=== PATIENT | female | born 1985 | race Caucasian/White ===

== ENCOUNTER 2017-10-04 14:30 | Inpatient (IN) | payer BC ==
[2017-10-04] MEDS ORDERED: Sodium Chloride 0.9% 10 ML Syringe FLUSH PRN (17:46)
[2017-10-04] MEDS ORDERED: Oxytocin/Lactated Ringers 10 UNIT/1,000 ML BAG IV SCH (18:00)
[2017-10-04] MEDS ORDERED: Lactated Ringers 1,000 ML IV SCH (18:00)
--- NOTE | 2017-10-04 20:32 | PCM.LDHP ---
L&D History of Present Illness - General Date of Service: 10/04/17 Admit Problem/Dx: Patient Status Order with Admit Dx/Problem 10/04/17 14:53 Patient Status [ADT] Routine Admission Diagnosis/Problem Admission Diagnosis/Problem and not yet delivered 10/04/17 20:26 31 yo at 39 6/7 presents to labor and delivery with contractions, irregular for several hours. No LOF. No VB. Normal FM. Observed on the floor for 4 hours. Slow cervical change noted and increased frequency of contractions noted. NST reactive. Given pts gestational age and distance of her home to the hospital, decision was made to augment labor with AROM. Routine and uncomplicated care. Previous pregnancies remarkable for gestational hypertension, gestational diabetes and shoulder dystocia with clavicle fracture. GBS neg STD ndg B positive Source of Information: Patient History Limitations: Reports: No Limitations - History of Present Illness Location, : Reports: Abdomen Quality: Reports: Pressure Severity: Mild Improves with: Reports: None Worsens with: Reports: None Associated Symptoms: Denies: vaginal bleeding, vaginal tissue, vaginal discharge , vaginal fluid - Related Data Allergies/Adverse Reactions: Allergies Allergy/AdvReac Type Severity Reaction Status Date / Time No Known Allergies Allergy Verified 01/10/15 11:31 Home Medications: Home Meds Docusate Sodium [Colace] 100 mg PO DAILY 01/10/15 [History] #48/Iron Cb&Glu/FA/B6 [Citranatal B-Calm Combo Pack] 1 each PO DAILY [History] Ranitidine [Zantac] 150 mg PO DAILY 01/10/15 [History] Past Medical History - Past Health History Medical/Surgical History: Denies Medical/Surgical History Gastrointestinal History: Reports: Hemorrhoids Social & Family History - Family History Family Medical History: Noncontributory - Tobacco Use Smoking Status *Q: Never Smoker - Caffeine Use Caffeine Use: Reports: None - Recreational Drug Use Recreational Drug Use: No - Living Situation & Occupation Living situation: Reports: H&P Review of Systems - Review of Systems: Review Of Systems: See Below General: Reports: No Symptoms HEENT: Reports: No Symptoms Pulmonary: Reports: No Symptoms Cardiovascular: Reports: No Symptoms Gastrointestinal: Reports: No Symptoms Genitourinary: Reports: No Symptoms Musculoskeletal: Reports: No Symptoms Skin: Reports: No Symptoms Psychiatric: Reports: No Symptoms Neurological: Reports: No Symptoms Hematologic/Lymphatic: Reports: No Symptoms Immunologic: Reports: No Symptoms L&D Exam - Exam Exam: See Below - Vital Signs Vital Signs: Last Vital Signs Temp 36.6 C 10/04/17 14:53 Pulse 90 10/04/17 14:53 Resp 16 10/04/17 14:53 BP 126/86 10/04/17 14:53 Pulse Ox 96 10/04/17 14:53 Weight: 101.605 kg - OB Specific Contraction Frequency (min): 2-6 Contraction Intensity: Mild to Moderate Estimated Weight: 3750 - Pena Score Pena Score Cervix Position: Midposition Pena Score Consistency: Soft Pena Score Effacement: >80% Pena Score Dilation: > 5 cm Pena Score 's Station: -3 Pena Score Total: 9 - Exam General: Alert, Oriented HEENT: Conjunctiva Clear GI/Abdominal Exam: Normal Bowel Sounds Genitourinary: Normal external exam Extremities: Normal Inspection Skin: Warm, Dry Psychiatric: Alert, Normal Affect, Normal Mood - Patient Data Lab Results Last 24 hrs: Laboratory Results - last 24 hr 10/04/17 Range/Units 18:05 WBC 10.65 H (3.98-10.04) K/mm3 RBC 4.05 (3.98-5.22) M/mm3 Hgb 12.3 (11.2-15.7) gm/L Hct 36.9 (34.1-44.9) % MCV 91.1 (79.4-94.8) fl MCH 30.4 (25.6-32.2) pg MCHC 33.3 (32.2-35.5) g/dl RDW Std Deviation 42.2 (36.4-46.3) fL Plt Count 189 (182-369) K/mm3 MPV 10.1 (9.4-12.3) fl Neut % (Auto) 71.3 H (34.0-71.1) % Lymph % (Auto) 18.6 L (19.3-51.7) % [place] % (Auto) 9.0 (4.7-12.5) % Eos % (Auto) 0.7 (0.7-5.8) Baso % (Auto) 0.1 (0.1-1.2) % Neut # (Auto) 7.60 H (1.56-6.13) K/mm3 Lymph # (Auto) 1.98 (1.18-3.74) K/mm3 [place] # (Auto) 0.96 H (0.24-0.36) K/mm3 Eos # (Auto) 0.07 (0.04-0.36) K/mm3 Baso # (Auto) 0.01 (0.01-0.08) K/mm3 Result Diagrams: 10/04/17 18:05 - Problem List (1) SNOMED Code(s): 36551230 ICD Code: Z34.90 - ENCNTR FOR SUPRVSN OF NORMAL , UNSP, UNSP TRIMESTER Status: Acute Current Visit: Yes Qualifiers: Weeks of gestation: 39 weeks Qualified Code(s): Z3A.39 - 39 weeks gestation of Problem List Initiated/Reviewed/Updated: Yes Orders Last 24hrs: Active Orders 24 hr Category Date Time Status Patient Status [ADT] Routine ADT 10/04/17 14:53 Active Activity as Tolerated [RC] PFP Care 10/04/17 17:46 Active Communication Order [RC] ASDIRECTED Care 10/04/17 17:46 Active Heart Tones [RC] ASDIRECTED Care 10/04/17 17:46 Active Notify Provider [RC] PFP Care 10/04/17 17:46 Active Notify Provider [RC] PRN Care 10/04/17 17:46 Active Peripheral IV Care [RC] . DIRECTED Care 10/04/17 17:46 Active Vital Signs [RC] PER UNIT ROUTINE Care 10/04/17 14:53 Active Vital Signs [RC] PER UNIT ROUTINE Care 10/04/17 17:46 Active Regular Diet [DIET] Diet 10/04/17 Dinner Active Lactated Ringers [Ringers, Lactated] 1,000 ml Med 10/04/17 18:00 Active IV ASDIRECTED Oxytocin/Lactated Ringers [Pitocin in LR 10 Units/1,000 Med 10/04/17 18:00 Active ML] 10 unit in 1,000 ml IV SEECOMMENT Sodium Chloride 0.9% [Saline Flush] Med 10/04/17 17:46 Active 10 ml FLUSH ASDIRECTED PRN Electronic Heart Tones Ext w TOCO [WOMSER] Oth 10/04/17 17:46 Ordered Routine Electronic Heart Tones Internal [WOMSER] Per Unit Oth 10/04/17 17:46 Ordered Routine Peripheral IV Insertion Adult [OM.PC] Routine Ot 10/04/17 17:46 Ordered Resuscitation Status Routine Resus Stat 10/04/17 14:53 Ordered Medication Orders Lactated Ringer's (Ringers, Lactated) 1,000 mls @ 100 mls/hr IV ASDIRECTED [facility] Oxytocin/Lactated Ringer's (Pitocin In Lr 10 Units/1,000 Ml) 10 unit in 1,000 mls @ 500 mls/hr IV SEECOMMENT [facility]; Protocol Sodium Chloride (Saline Flush) 10 ml FLUSH ASDIRECTED PRN PRN Reason: Keep Vein Open Assessment/Plan Comment:: 31 yo at 39 6/7 with contractions. SVE reveals cervix at 5 cm, 80% effaced. Decision was made to artificially rupture membranes. Clear fluid noted. GBS neg B neg Pt does not plan for epidural. Anticipate vaginal delivery.
[2017-10-05] MEDS ORDERED: Docusate Sodium 100 MG Cap PO PRN (00:34)
[2017-10-05] MEDS ORDERED: Acetaminophen 325 MG Tab PO PRN (00:34)
[2017-10-05] MEDS ORDERED: Lanolin 100% Cream 7 GM Tube TOP PRN (00:34)
[2017-10-05] MEDS ORDERED: Witch Hazel Medicated Pads 100/Jar TOP PRN (00:34)
--- NOTE | 2017-10-05 00:47 | PCM.DEL ---
L & D Note - General Info Date of Service: 10/05/17 Mother's Due Date: 10/05/17 - Delivery Note Labor: Spontaneous, Augmented by ARM Delivery Outcome: Livebirth Delivery Method: Spontaneous Vaginal Delivery-Single Delivery Mode: Spontaneous Presentation: Right Occiput Anterior (MARY) Nuchal Cord: None Anesthesia Type: None Amniotic Fluid Description: Clear Episiotomy Type: None Laceration: None Placenta: Intact, Spontaneous Cord: 3 Vessels Estimated Blood Loss: 250 Bates: Suctioned (12 ml clear fluid) Score 1 min: 7 Score 5 min: 9 Second Stage Interventions: Reports: Pushing, Pulls Own Legs Back Delivery Comments (Free Text/Narrative):: On 10/05/17 at 0010AM this 31 yo G3now P3 female delivered a viable 9lbs 11ounces female under no anesthesia. Apgars 7 and 9. Delivery was via with no anesthesia over an intact perineum to a sterile field. There was no nuchal cord. was placed on mother's abdomen with waiting nurse. Cord was clamped and cut. cord blood was obtained. An intact placenta with a 3 vessel cord delivered spontaneously at 0013. Vagina was explored. no lacerations were noted. 10 units of pitocin were administered via IV. EBL 250ml. Infant and mother in delivery room in stable condition at this time. - General Info Date of Service: 10/05/17 - Patient Data Vitals - Most Recent: Last Vital Signs Temp 36.6 C 10/04/17 14:53 Pulse 90 10/04/17 14:53 Resp 16 10/04/17 14:53 BP 126/86 10/04/17 14:53 Pulse Ox 96 10/04/17 14:53 Weight - Most Recent: 101.605 kg Lab Results Last 24 Hours: Laboratory Results - last 24 hr 10/04/17 Range/Units 18:05 WBC 10.65 H (3.98-10.04) K/mm3 RBC 4.05 (3.98-5.22) M/mm3 Hgb 12.3 (11.2-15.7) gm/L Hct 36.9 (34.1-44.9) % MCV 91.1 (79.4-94.8) fl MCH 30.4 (25.6-32.2) pg MCHC 33.3 (32.2-35.5) g/dl RDW Std Deviation 42.2 (36.4-46.3) fL Plt Count 189 (182-369) K/mm3 MPV 10.1 (9.4-12.3) fl Neut % (Auto) 71.3 H (34.0-71.1) % Lymph % (Auto) 18.6 L (19.3-51.7) % [place] % (Auto) 9.0 (4.7-12.5) % Eos % (Auto) 0.7 (0.7-5.8) Baso % (Auto) 0.1 (0.1-1.2) % Neut # (Auto) 7.60 H (1.56-6.13) K/mm3 Lymph # (Auto) 1.98 (1.18-3.74) K/mm3 [place] # (Auto) 0.96 H (0.24-0.36) K/mm3 Eos # (Auto) 0.07 (0.04-0.36) K/mm3 Baso # (Auto) 0.01 (0.01-0.08) K/mm3 Med Orders - Current: Current Medications Acetaminophen (Tylenol) 650 mg PO Q4H PRN PRN Reason: mild pain or fever Docusate Sodium (Colace) 100 mg PO BID PRN PRN Reason: Constipation Emollient Ointment (Lansinoh Hpa) 0 gm TOP ASDIRECTED PRN PRN Reason: Sore Nipples Lactated Ringer's (Ringers, Lactated) 1,000 mls @ 100 mls/hr IV ASDIRECTED [facility] Oxytocin/Lactated Ringer's (Pitocin In Lr 10 Units/1,000 Ml) 10 unit in 1,000 mls @ 500 mls/hr IV SEECOMMENT [facility]; Protocol Ibuprofen (Motrin) 600 mg PO Q4H PRN PRN Reason: Mild pain or fever Sodium Chloride (Saline Flush) 10 ml FLUSH ASDIRECTED PRN PRN Reason: Keep Vein Open Witch Malaika (Tucks) 1 pad TOP ASDIRECTED PRN PRN Reason: Hemorrhoid pain - Problem List & Annotations (1) SNOMED Code(s): 85222821 Code(s): Z34.90 - ENCNTR FOR SUPRVSN OF NORMAL , UNSP, UNSP TRIMESTER Status: Acute Current Visit: Yes Qualifiers: Weeks of gestation: 39 weeks Qualified Code(s): Z3A.39 - 39 weeks gestation of - Problem List Review Problem List Initiated/Reviewed/Updated: Yes - My Orders Last 24 Hours: My Active Orders 10/04/17 14:53 Patient Status [ADT] Routine Vital Signs [RC] PER UNIT ROUTINE Resuscitation Status Routine 10/04/17 17:46 Activity as Tolerated [RC] PFP Communication Order [RC] ASDIRECTED Heart Tones [RC] ASDIRECTED Notify Provider [RC] PFP Notify Provider [RC] PRN Peripheral IV Care [RC] . DIRECTED Vital Signs [RC] PER UNIT ROUTINE Sodium Chloride 0.9% [Saline Flush] 10 ml FLUSH ASDIRECTED PRN Electronic Heart Tones Ext w TOCO [WOMSER] Routine Electronic Heart Tones Internal [WOMSER] Per Unit Routine Peripheral IV Insertion Adult [OM.PC] Routine 10/04/17 18:00 Lactated Ringers [Ringers, Lactated] 1,000 ml IV ASDIRECTED Oxytocin/Lactated Ringers [Pitocin in LR 10 Units/1,000 ML] 10 unit in 1,000 ml IV SEECOMMENT 10/04/17 Dinner Regular Diet [DIET] 10/05/17 00:32 Patient Status Manage Transfer [TRANSFER] Routine 10/05/17 00:34 Patient Status [ADT] Routine Activity as Tolerated [RC] PER UNIT ROUTINE Vital Signs [RC] ASDIRECTED Acetaminophen [Tylenol] 650 mg PO Q4H PRN Docusate Sodium [Colace] 100 mg PO BID PRN Ibuprofen [Motrin] 600 mg PO Q4H PRN Lanolin [Lansinoh HPA] See Dose Instructions TOP ASDIRECTED PRN Witch Malaika [Tucks] 1 pad TOP ASDIRECTED PRN Assess Lochia [WOMSER] Per Unit Routine Assess Uterine Involution [WOMSER] Per Unit Routine Breast Pump [WOMSER] Per Unit Routine Medication Administration Instruction [OM.PC] Routine Perineal Care [OM.PC] Per Unit Routine Sitz Bath [OM.PC] Per Unit Routine 10/05/17 00:45 Heat Therapy [OM.PC] PRN 10/05/17 05:11 HEMOGLOBIN/HEMATOCRIT,HH [HEME] AM 10/06/17 00:45 Heat Therapy [OM.PC] PRN - Plan Plan:: 31 yo at 39 6/7 with contractions. SVE reveals cervix at 5 cm, 80% effaced. Decision was made to artificially rupture membranes. Clear fluid noted. GBS neg B neg Pt does not plan for epidural. Anticipate vaginal delivery.
[2017-10-05] MEDS: Ibuprofen 600 MG Tab PO PRN ×4 (01:32→16:27)
[2017-10-05] MEDS ORDERED: Oxytocin/Lactated Ringers 10 UNIT/1,000 ML BAG IV SCH (02:45)
[2017-10-05] MEDS: Benzocaine/Menthol 20%-0.5% Spray 56 GM Canister TOP PRN ×2 (03:29→04:31)
--- NOTE | 2017-10-05 12:33 | PCM.PNPP ---
- General Info Date of Service: 10/05/17 Functional Status: Reports: Pain Controlled, Tolerating Diet, Ambulating - Review of Systems General: Reports: No Symptoms HEENT: Reports: No Symptoms Pulmonary: Reports: No Symptoms Cardiovascular: Reports: No Symptoms Gastrointestinal: Reports: No Symptoms Genitourinary: Reports: No Symptoms Musculoskeletal: Reports: No Symptoms Skin: Reports: No Symptoms Neurological: Reports: No Symptoms Psychiatric: Reports: No Symptoms - General Info Date of Service: 10/05/17 - Patient Data Vital Signs - Most Recent: Last Vital Signs Temp 36.9 C 10/05/17 07:56 Pulse 86 10/05/17 07:56 Resp 16 10/05/17 07:56 BP 123/85 10/05/17 07:56 Pulse Ox 97 10/05/17 07:56 Weight - Most Recent: 101.605 kg I&O - Last 24 Hours: Intake & Output 10/04/17 10/05/17 10/05/17 22:59 06:59 14:59 Intake Total 1000 240 Balance 1000 240 Lab Results - Last 24 Hours: Laboratory Results - last 24 hr 10/04/17 10/05/17 Range/Units 18:05 06:30 WBC 10.65 H (3.98-10.04) K/mm3 RBC 4.05 (3.98-5.22) M/mm3 Hgb 12.3 11.8 (11.2-15.7) gm/L Hct 36.9 35.6 (34.1-44.9) % MCV 91.1 (79.4-94.8) fl MCH 30.4 (25.6-32.2) pg MCHC 33.3 (32.2-35.5) g/dl RDW Std Deviation 42.2 (36.4-46.3) fL Plt Count 189 (182-369) K/mm3 MPV 10.1 (9.4-12.3) fl Neut % (Auto) 71.3 H (34.0-71.1) % Lymph % (Auto) 18.6 L (19.3-51.7) % [place] % (Auto) 9.0 (4.7-12.5) % Eos % (Auto) 0.7 (0.7-5.8) Baso % (Auto) 0.1 (0.1-1.2) % Neut # (Auto) 7.60 H (1.56-6.13) K/mm3 Lymph # (Auto) 1.98 (1.18-3.74) K/mm3 [place] # (Auto) 0.96 H (0.24-0.36) K/mm3 Eos # (Auto) 0.07 (0.04-0.36) K/mm3 Baso # (Auto) 0.01 (0.01-0.08) K/mm3 Med Orders - Current: Current Medications Acetaminophen (Tylenol) 650 mg PO Q4H PRN PRN Reason: mild pain or fever Benzocaine/Menthol (Dermoplast Pain Relief [place]) 0 gm TOP ASDIRECTED PRN PRN Reason: Perineal Comfort Measure Last Admin: 10/05/17 03:29 Dose: 1 canister Docusate Sodium (Colace) 100 mg PO BID PRN PRN Reason: Constipation Emollient Ointment (Lansinoh Hpa) 0 gm TOP ASDIRECTED PRN PRN Reason: Sore Nipples Ibuprofen (Motrin) 600 mg PO Q4H PRN PRN Reason: Mild pain or fever Last Admin: 10/05/17 07:53 Dose: 600 mg Witch Malaika (Tucks) 1 pad TOP ASDIRECTED PRN PRN Reason: Hemorrhoid pain Last Admin: 10/05/17 01:32 Dose: 1 tub Discontinued Medications Lactated Ringer's (Ringers, Lactated) 1,000 mls @ 100 mls/hr IV ASDIRECTED [facility] Oxytocin/Lactated Ringer's (Pitocin In Lr 10 Units/1,000 Ml) 10 unit in 1,000 mls @ 500 mls/hr IV SEECOMMENT [facility]; Protocol Last Admin: 10/05/17 03:28 Dose: 500 mls/hr Sodium Chloride (Saline Flush) 10 ml FLUSH ASDIRECTED PRN PRN Reason: Keep Vein Open - Infant Interaction Infant Disposition, : in Room with Family Infant Interaction: Holding Infant Feeding: Breastfed Infant; Nursed Well Support Person: - Recovery Exam Fundal Tone: Firm Fundal Level: 1 Fingerbreadths Below Umbilicus Fundal Placement: Midline Lochia Amount: Scant, Small Lochia Color: Rubra/Red Perineum Description: Intact, Minimal Bruising/Swelling Episiotomy/Laceration: None Bladder Status: Voiding - Exam General: Alert, Oriented Extremities: No Pedal Edema Skin: Warm, Dry, Intact - Problem List & Annotations (1) SNOMED Code(s): 93701029 Code(s): Z34.90 - ENCNTR FOR SUPRVSN OF NORMAL , UNSP, UNSP TRIMESTER Status: Acute Current Visit: Yes Qualifiers: Weeks of gestation: 39 weeks Qualified Code(s): Z3A.39 - 39 weeks gestation of (2) Shoulder dystocia during labor and delivery, delivered SNOMED Code(s): 75073429 Code(s): O66.0 - OBSTRUCTED LABOR DUE TO SHOULDER DYSTOCIA Status: Acute Current Visit: Yes - Problem List Review Problem List Initiated/Reviewed/Updated: Yes - My Orders Last 24 Hours: My Active Orders 10/04/17 14:53 Resuscitation Status Routine 10/04/17 17:46 Activity as Tolerated [RC] PFP Communication Order [RC] ASDIRECTED Heart Tones [RC] ASDIRECTED Notify Provider [RC] PFP Notify Provider [RC] PRN Vital Signs [RC] PER UNIT ROUTINE 10/04/17 Dinner Regular Diet [DIET] 10/05/17 00:34 Patient Status [ADT] Routine Activity as Tolerated [RC] PER UNIT ROUTINE Vital Signs [RC] 03,09,15,21 Acetaminophen [Tylenol] 650 mg PO Q4H PRN Docusate Sodium [Colace] 100 mg PO BID PRN Ibuprofen [Motrin] 600 mg PO Q4H PRN Lanolin [Lansinoh HPA] See Dose Instructions TOP ASDIRECTED PRN Witch Malaika [Tucks] 1 pad TOP ASDIRECTED PRN Assess Lochia [WOMSER] Per Unit Routine Assess Uterine Involution [WOMSER] Per Unit Routine Breast Pump [WOMSER] Per Unit Routine Medication Administration Instruction [OM.PC] Routine Perineal Care [OM.PC] Per Unit Routine Sitz Bath [OM.PC] Per Unit Routine 10/05/17 00:45 Heat Therapy [OM.PC] PRN 10/05/17 01:42 Benzocaine/Menthol [Dermoplast Pain Relief [place]] 0 gm TOP ASDIRECTED PRN 10/06/17 00:45 Heat Therapy [OM.PC] PRN - Plan Plan:: 31 yo at 39 6/7 with contractions. SVE reveals cervix at 5 cm, 80% effaced. Decision was made to artificially rupture membranes. Clear fluid noted. GBS neg B neg Pt does not plan for epidural. Anticipate vaginal delivery. 10/05/17 31 yo at 12 hours normal vaginal delivery continue education, routine care.
--- NOTE | 2017-10-06 07:56 | PCM.DCSUM1 ---
Discharge Summary - Hospital Course Free Text/Narrative:: 31 yo on PPD #1 s/p at 40 weeks gestation. Routine stay pain controlled lochia normal D/c to home with today F/U Familia in 6-8 weeks - Discharge Data Discharge Date: 10/06/17 Discharge Disposition: Home, Self-Care 01 Condition: Good - Discharge Diagnosis/Problem(s) (1) SNOMED Code(s): 15074122 ICD Code: Z34.90 - ENCNTR FOR SUPRVSN OF NORMAL , UNSP, UNSP TRIMESTER Status: Resolved Current Visit: Yes Qualifiers: Weeks of gestation: 39 weeks Qualified Code(s): Z3A.39 - 39 weeks gestation of (2) Shoulder dystocia during labor and delivery, delivered SNOMED Code(s): 88664588 ICD Code: O66.0 - OBSTRUCTED LABOR DUE TO SHOULDER DYSTOCIA Status: Resolved Current Visit: Yes - Patient Instructions Diet: Usual Diet as Tolerated Activity: As Tolerated Driving: May Drive Today Showering/Bathing: May Shower Notify Provider of: Fever, Increased Pain, Swelling and Redness, Drainage, Nausea and/or Vomiting - Discharge Plan Home Medications: Home Meds Docusate Sodium [Colace] 100 mg PO DAILY 01/10/15 [History] #48/Iron Cb&Glu/FA/B6 [Citranatal B-Calm Combo Pack] 1 each PO DAILY [History] Ranitidine [Zantac] 150 mg PO DAILY 01/10/15 [History] Acetaminophen [Tylenol] 650 mg PO Q4H PRN tablet 10/06/17 [Rx] Benzocaine/Menthol [Dermoplast Pain Relief [place]] 0 gm TOP ASDIRECTED PRN canister 10/06/17 [Rx] Ibuprofen [Motrin] 600 mg PO Q4H PRN tablet 10/06/17 [Rx] Lanolin [Lansinoh HPA] 1 applic TOP ASDIRECTED PRN tube 10/06/17 [Rx] Witch Malaika [Tucks] 1 pad TOP ASDIRECTED PRN pad 10/06/17 [Rx] Patient Handouts: Home Care Instructions for Mom, Care After Vaginal Delivery - Discharge Summary/Plan Comment DC Time >30 min.: No - General Info Date of Service: 10/06/17 Functional Status: Reports: Pain Controlled - Review of Systems General: Reports: No Symptoms HEENT: Reports: No Symptoms Pulmonary: Reports: No Symptoms Cardiovascular: Reports: No Symptoms Gastrointestinal: Reports: No Symptoms Genitourinary: Reports: No Symptoms Musculoskeletal: Reports: No Symptoms Skin: Reports: No Symptoms Neurological: Reports: No Symptoms Psychiatric: Reports: No Symptoms - Patient Data Vitals - Most Recent: Last Vital Signs Temp 36.2 C 10/06/17 04:39 Pulse 71 10/06/17 04:39 Resp 15 10/06/17 04:39 BP 117/88 10/06/17 04:39 Pulse Ox 97 10/06/17 04:39 Weight - Most Recent: 101.605 kg I&O - Last 24 hours: Intake & Output 10/05/17 10/06/17 10/06/17 22:59 06:59 14:59 Intake Total 360 Balance 360 Med Orders - Current: Current Medications Acetaminophen (Tylenol) 650 mg PO Q4H PRN PRN Reason: mild pain or fever Benzocaine/Menthol (Dermoplast Pain Relief [place]) 0 gm TOP ASDIRECTED PRN PRN Reason: Perineal Comfort Measure Last Admin: 10/05/17 03:29 Dose: 1 canister Docusate Sodium (Colace) 100 mg PO BID PRN PRN Reason: Constipation Emollient Ointment (Lansinoh Hpa) 0 gm TOP ASDIRECTED PRN PRN Reason: Sore Nipples Ibuprofen (Motrin) 600 mg PO Q4H PRN PRN Reason: Mild pain or fever Last Admin: 10/05/17 16:27 Dose: 600 mg Witch Malaika (Tucks) 1 pad TOP ASDIRECTED PRN PRN Reason: Hemorrhoid pain Last Admin: 10/05/17 01:32 Dose: 1 tub Discontinued Medications Lactated Ringer's (Ringers, Lactated) 1,000 mls @ 100 mls/hr IV ASDIRECTED [facility] Oxytocin/Lactated Ringer's (Pitocin In Lr 10 Units/1,000 Ml) 10 unit in 1,000 mls @ 500 mls/hr IV SEECOMMENT [facility]; Protocol Last Admin: 10/05/17 03:28 Dose: 500 mls/hr Sodium Chloride (Saline Flush) 10 ml FLUSH ASDIRECTED PRN PRN Reason: Keep Vein Open - General Info Date of Service: 10/06/17 - Patient Data Vital Signs - Most Recent: Last Vital Signs Temp 36.2 C 10/06/17 04:39 Pulse 71 10/06/17 04:39 Resp 15 10/06/17 04:39 BP 117/88 10/06/17 04:39 Pulse Ox 97 10/06/17 04:39 Weight - Most Recent: 101.605 kg I&O - Last 24 Hours: Intake & Output 10/05/17 10/06/17 10/06/17 22:59 06:59 14:59 Intake Total 360 Balance 360 Med Orders - Current: Current Medications Acetaminophen (Tylenol) 650 mg PO Q4H PRN PRN Reason: mild pain or fever Benzocaine/Menthol (Dermoplast Pain Relief [place]) 0 gm TOP ASDIRECTED PRN PRN Reason: Perineal Comfort Measure Last Admin: 10/05/17 03:29 Dose: 1 canister Docusate Sodium (Colace) 100 mg PO BID PRN PRN Reason: Constipation Emollient Ointment (Lansinoh Hpa) 0 gm TOP ASDIRECTED PRN PRN Reason: Sore Nipples Ibuprofen (Motrin) 600 mg PO Q4H PRN PRN Reason: Mild pain or fever Last Admin: 10/05/17 16:27 Dose: 600 mg Witch Malaika (Tucks) 1 pad TOP ASDIRECTED PRN PRN Reason: Hemorrhoid pain Last Admin: 10/05/17 01:32 Dose: 1 tub Discontinued Medications Lactated Ringer's (Ringers, Lactated) 1,000 mls @ 100 mls/hr IV ASDIRECTED [facility] Oxytocin/Lactated Ringer's (Pitocin In Lr 10 Units/1,000 Ml) 10 unit in 1,000 mls @ 500 mls/hr IV SEECOMMENT [facility]; Protocol Last Admin: 10/05/17 03:28 Dose: 500 mls/hr Sodium Chloride (Saline Flush) 10 ml FLUSH ASDIRECTED PRN PRN Reason: Keep Vein Open - Infant Interaction Infant Disposition, : [place] in Room with Family Infant Interaction: Holding Infant Infant Feeding: Breastfed Infant; Nursed Well Support Person: - Recovery Exam Fundal Tone: Firm Fundal Level: 1 Fingerbreadths Below Umbilicus Fundal Placement: Midline Lochia Amount: Scant Lochia Color: Rubra/Red Perineum Description: Intact, Minimal Bruising/Swelling Episiotomy/Laceration: None Bladder Status: Voiding - Exam General: Alert, Oriented Extremities: No Pedal Edema Skin: Warm, Dry
[2017-10-06 10:13] VITALS: BP 101/84
== END 2017-10-06 11:45 | disposition home or self-care (01) | DRG 560 ==
LOC: JD.OBCHECK 14:30 → JD.OB 14:35 → JD.OBCHECK 14:52 → JD.OB 14:53 → OBSVTOIN 10-05 00:10
PROVIDERS: ADMIT Family Medicine; ATTEND Family Medicine
PROC: 10E0XZZ Delivery of Products of Conception, External Approach (ICD-10-PCS; principal; 2017-10-05)
PROC: 10907ZC Drainage of Amniotic Fluid, Therapeutic from Products of Conception, Via Natural or Artificial Opening (ICD-10-PCS; 2017-10-05)
DX: O66.0 Obstructed labor due to shoulder dystocia (principal); Z3A.39 39 weeks gestation of pregnancy; Z37.0 Single live birth
CPT/HCPCS: 36415; 59025; 59409; 85014; 85018; 85025; A9270-GY; J2590

== ENCOUNTER 2019-11-01 07:11 | Inpatient (IN) | payer BC ==
[2019-11-01] MEDS ORDERED: Ondansetron 4 MG/2 ML SDV IVPUSH PRN (07:12)
[2019-11-01] MEDS ORDERED: Nalbuphine 10 MG/ML Syringe IVPUSH PRN (07:12)
[2019-11-01] MEDS ORDERED: Sodium Chloride 0.9% 10 ML Syringe FLUSH PRN (07:12)
--- NOTE | 2019-11-01 07:14 | PCM.LDHP ---
L&D History of Present Illness - General Date of Service: 11/01/19 Admit Problem/Dx: Patient Status Order with Admit Dx/Problem 11/01/19 07:13 Patient Status [ADT] Routine Admission Diagnosis/Problem Admission Diagnosis/Problem Normal in third trimester Source of Information: Patient History Limitations: Reports: No Limitations - History of Present Illness Introduction:: Patient is a 33 y/o at 39 2/7 wks who presents for elective IOL. Doing well today. No major issues or concerns - Related Data Allergies/Adverse Reactions: Allergies Allergy/AdvReac Type Severity Reaction Status Date / Time No Known Allergies Allergy Verified 11/01/19 09:46 Home Medications: Home Meds Docusate Sodium [Colace] 100 mg PO DAILY 01/10/15 [History] 48/Iron/Folic Acid/B6 [Citranatal B-Calm Combo Pack] 1 each PO DAILY [History] Ranitidine [Zantac] 150 mg PO DAILY 01/10/15 [History] Acetaminophen [Tylenol] 650 mg PO Q4H PRN tablet 10/06/17 [Rx] Benzocaine/Menthol [Dermoplast Pain Relief [place]] 0 gm TOP ASDIRECTED PRN canister 10/06/17 [Rx] Ibuprofen [Motrin] 600 mg PO Q4H PRN tablet 10/06/17 [Rx] Lanolin [Lansinoh HPA] 1 applic TOP ASDIRECTED PRN tube 10/06/17 [Rx] witch Federico [Tucks] 1 pad TOP ASDIRECTED PRN pad 10/06/17 [Rx] Past Medical History Cardiovascular History: Reports: Other (See Below) (Hx of gestational HTN) Gastrointestinal History: Reports: GERD, Hemorrhoids Endocrine/Metabolic History: Reports: Diabetes, Gestational (history of) - Past Surgical History HEENT Surgical History: Reports: Oral Surgery (tooth extraction) GI Surgical History: Reports: EGD Social & Family History - Family History Family Medical History: Noncontributory - Tobacco Use Smoking Status *Q: Never Smoker - Caffeine Use Caffeine Use: Reports: None - Alcohol Use Alcohol Use History: No - Recreational Drug Use Recreational Drug Use: No - Living Situation & Occupation Living situation: Reports: H&P Review of Systems - Review of Systems: Review Of Systems: See Below General: Reports: No Symptoms Pulmonary: Reports: No Symptoms Cardiovascular: Reports: No Symptoms Gastrointestinal: Reports: No Symptoms Genitourinary: Reports: No Symptoms Musculoskeletal: Reports: No Symptoms Psychiatric: Reports: No Symptoms Neurological: Reports: No Symptoms L&D Exam - Exam Exam: See Below - OB Specific Contraction Intensity: Irritability Movement: Active Heart Tones: Present Heart Tones per Min: 135 Heart Rate (FHR) Variability: Moderate (6-25 bmp) Presentation: Vertex - Pena Score Pena Score Cervix Position: Midposition Pena Score Consistency: Soft Pena Score Effacement: 51-70% Pena Score Dilation: 1-2 cm Pena Score Infant's Station: -2 Pena Score Total: 7 - Exam General: Alert, Oriented, Cooperative Lungs: Clear to Auscultation, Normal Respiratory Effort Cardiovascular: Regular Rate, Regular Rhythm GI/Abdominal Exam: Soft, Non-Tender Genitourinary: Normal external exam Extremities: Normal Inspection Skin: Warm, Dry, Intact - Patient Data Result Diagrams: 11/01/19 07:50 - Problem List (1) 39 weeks gestation of SNOMED Code(s): 10551407 ICD Code: Z3A.39 - 39 WEEKS GESTATION OF Status: Acute Current Visit: Yes Problem List Initiated/Reviewed/Updated: Yes Orders Last 24hrs: Active Orders 24 hr Category Date Time Status Patient Status [ADT] Routine ADT 11/01/19 07:13 Ordered Communication Order [RC] ASDIRECTED Care 11/01/19 07:13 Ordered Communication Order [RC] ASDIRECTED Care 11/01/19 07:13 Ordered Communication Order [RC] ASDIRECTED Care 11/01/19 07:13 Ordered Heart Tones [RC] ASDIRECTED Care 11/01/19 07:13 Ordered Monitoring [RC] INTERMITTENT Care 11/01/19 07:13 Ordered Non Stress Test [RC] PER UNIT ROUTINE Care 11/01/19 07:13 Ordered Notify Provider [RC] ASDIRECTED Care 11/01/19 07:13 Ordered Notify Provider [RC] PRN Care 11/01/19 07:13 Ordered Peripheral IV Care [RC] . DIRECTED Care 11/01/19 07:13 Ordered Vaginal Exam [RC] ASDIRECTED Care 11/01/19 07:13 Ordered Vital Signs [RC] ASDIRECTED Care 11/01/19 07:13 Ordered Regular Diet [DIET] Diet 11/01/19 Breakfast Ordered CBC W/O DIFF,HEMOGRAM [HEME] Routine Lab 11/01/19 07:12 Ordered RAPID PLASMA REAGIN,RPR [CHEM] Routine Lab 11/01/19 07:13 Ordered TYPE AND SCREEN [BBK] Routine Lab 11/01/19 07:12 Ordered Lactated Ringers [Ringers, Lactated] 1,000 ml Med 11/01/19 07:15 Ordered IV ASDIRECTED Nalbuphine [Nubain] Med 11/01/19 07:12 Ordered 10 mg IVPUSH Q2H PRN Ondansetron [Zofran] Med 11/01/19 07:12 Ordered 4 mg IVPUSH Q4H PRN Oxytocin/Lactated Ringers [Pitocin in LR 10 Units/1,000 Med 11/01/19 07:15 Ordered ML] 10 unit in 1,000 ml IV .CONTINUOUS Oxytocin/Lactated Ringers [Pitocin in LR 10 Units/1,000 Med 11/01/19 07:15 Ordered ML] 10 unit in 1,000 ml IV TITRATE Sodium Chloride 0.9% [Saline Flush] Med 11/01/19 07:12 Ordered 10 ml FLUSH ASDIRECTED PRN Electronic Heart Tones Ext w TOCO [WOMSER] Oth 11/01/19 07:13 Ordered Routine Electronic Heart Tones Internal [WOMSER] Per Unit Oth 11/01/19 07:13 Ordered Routine Peripheral IV Insertion Adult [OM.PC] Routine Oth 11/01/19 07:13 Ordered Resuscitation Status Routine Resus Stat 11/01/19 07:12 Ordered Assessment/Plan Comment:: * Labs * GBS negative * Prefers AROM only for IOL. Done with meconium stained fluid * Plans unmedicated delivery * Anticipate
[2019-11-01] MEDS ORDERED: Oxytocin/Lactated Ringers 10 UNIT/1,000 ML BAG IV SCH ×2 (07:15)
[2019-11-01] MEDS ORDERED: Lactated Ringers 1,000 ML IV SCH (07:15)
--- NOTE | 2019-11-01 17:43 | PCM.DEL ---
L & D Note - General Info Date of Service: 11/01/19 - Delivery Note Labor: Induced by ARM Delivery Outcome: Livebirth Infant Delivery Method: Spontaneous Vaginal Delivery-Single Infant Delivery Mode: Spontaneous Nuchal Cord: Present, Reduced Anesthesia Type: None Amniotic Fluid Description: Meconium Stained Episiotomy Type: None Laceration: None Placenta: Intact, Spontaneous Cord: 3 Vessels Estimated Blood Loss: 200 Resuscitation Needed: Yes [place]: Bulb Syringe, Stimulated, Warmed, [place] Used, Warmer Used Delivery Comments (Free Text/Narrative):: Patient got out of tub and noted need to push. I was called to present. RN had patient in bed. As I was entering door head delivered and RN reduced nuchal. I presented to bedside and baby had delivered partially onto mattress. Elevated baby onto maternal abdomen. Cord clamped after 2 minutes and cut. Cord blood obtained. Placenta allowed time to separate and expelled intact. Inspection of the perineum showed no lacerations. - General Info Date of Service: 11/01/19 - Patient Data Vitals - Most Recent: Last Vital Signs Temp 36.9 C 11/01/19 07:13 Pulse 78 11/01/19 07:13 Resp 16 11/01/19 07:13 BP 138/87 11/01/19 07:13 Pulse Ox 100 11/01/19 07:13 Weight - Most Recent: 104.326 kg I&O - Last 24 Hours: Intake & Output 11/01/19 11/01/19 11/01/19 06:59 14:59 22:59 Intake Total 0 Balance 0 - Problem List & Annotations (1) 39 weeks gestation of SNOMED Code(s): 34681479 Code(s): Z3A.39 - 39 WEEKS GESTATION OF Status: Acute Current Visit: Yes (2) Vaginal delivery SNOMED Code(s): 601566457 Code(s): O80 - ENCOUNTER FOR FULL-TERM UNCOMPLICATED DELIVERY Status: Acute Current Visit: Yes - Problem List Review Problem List Initiated/Reviewed/Updated: Yes - My Orders Last 24 Hours: My Active Orders 11/01/19 07:12 Nalbuphine [Nubain] 10 mg IVPUSH Q2H PRN Ondansetron [Zofran] 4 mg IVPUSH Q4H PRN Sodium Chloride 0.9% [Saline Flush] 10 ml FLUSH ASDIRECTED PRN Resuscitation Status Routine 11/01/19 07:13 Patient Status [ADT] Routine Communication Order [RC] ASDIRECTED Communication Order [RC] ASDIRECTED Communication Order [RC] ASDIRECTED Heart Tones [RC] ASDIRECTED Monitoring [RC] INTERMITTENT Non Stress Test [RC] PER UNIT ROUTINE Notify Provider [RC] ASDIRECTED Notify Provider [RC] PRN Vital Signs [RC] 03,09,15,21 Electronic Heart Tones Ext w TOCO [WOMSER] Routine Electronic Heart Tones Internal [WOMSER] Per Unit Routine Peripheral IV Insertion Adult [OM.PC] Routine 11/01/19 07:15 Lactated Ringers [Ringers, Lactated] 1,000 ml IV ASDIRECTED Oxytocin/Lactated Ringers [Pitocin in LR 10 Units/1,000 ML] 10 unit in 1,000 ml IV .CONTINUOUS Oxytocin/Lactated Ringers [Pitocin in LR 10 Units/1,000 ML] 10 unit in 1,000 ml IV TITRATE 11/01/19 07:50 RAPID PLASMA REAGIN,RPR [CHEM] Routine 11/01/19 17:41 Patient Status Manage Transfer [TRANSFER] Routine 11/01/19 Breakfast Regular Diet [DIET] - Assessment Assessment:: PPD#0 - Plan Plan:: * Routine cares * Encourage breast feeding * Discharge home in 1-2 days
[2019-11-01] MEDS ORDERED: Benzocaine/Menthol 20%-0.5% Spray 56 GM Canister TOP PRN (18:11)
[2019-11-01] MEDS ORDERED: Witch Hazel Medicated Pads 40/Jar TOP PRN (18:11)
[2019-11-01] MEDS ORDERED: Acetaminophen 325 MG Tab PO PRN (18:11)
[2019-11-01] MEDS: Ibuprofen 600 MG Tab PO PRN (18:20)
[2019-11-02] MEDS: Ibuprofen 600 MG Tab PO PRN ×2 (08:18→13:56)
--- NOTE | 2019-11-02 08:43 | PCM.PNPP ---
- General Info Date of Service: 11/02/19 Functional Status: Reports: Pain Controlled, Tolerating Diet, Ambulating, Urinating - Review of Systems General: Reports: No Symptoms Pulmonary: Reports: No Symptoms Cardiovascular: Reports: No Symptoms Gastrointestinal: Reports: No Symptoms Genitourinary: Reports: Other (One large clot last night, but since then has done well) Musculoskeletal: Reports: No Symptoms Neurological: Reports: No Symptoms - Patient Data Vital Signs - Most Recent: Last Vital Signs Temp 36.7 C 11/02/19 04:19 Pulse 72 11/02/19 04:19 Resp 14 11/02/19 04:19 BP 111/63 11/02/19 04:19 Pulse Ox 95 11/02/19 04:19 Weight - Most Recent: 104.326 kg I&O - Last 24 Hours: Intake & Output 11/01/19 11/02/19 11/02/19 22:59 06:59 14:59 Intake Total 950 240 Balance 950 240 Lab Results - Last 24 Hours: Laboratory Results - last 24 hr 11/01/19 11/01/19 Range/Units 07:50 07:50 RPR Non-reactive (NONREACTIVE) Blood Type B POSITIVE Gel Antibody Screen Negative Med Orders - Current: Current Medications Acetaminophen (Tylenol) 650 mg PO Q4H PRN PRN Reason: mild pain or fever Benzocaine/Menthol (Dermoplast Pain Relief [place]) 0 gm TOP ASDIRECTED PRN PRN Reason: Perineal Comfort Measure Last Admin: 11/01/19 18:21 Dose: 1 applic Ibuprofen (Motrin) 600 mg PO Q6H PRN PRN Reason: Mild pain or fever Last Admin: 11/02/19 08:18 Dose: 600 mg Witch Federico (Tucks) 1 pad TOP ASDIRECTED PRN PRN Reason: Perineal Comfort Measure Last Admin: 11/01/19 18:21 Dose: 1 pad Discontinued Medications Lactated Ringer's (Ringers, Lactated) 1,000 mls @ 40 mls/hr IV ASDIRECTED JENNIFER Oxytocin/Lactated Ringer's (Pitocin In Lr 10 Units/1,000 Ml) 10 unit in 1,000 mls @ 12 mls/hr IV TITRATE JENNIFER; Protocol Oxytocin/Lactated Ringer's (Pitocin In Lr 10 Units/1,000 Ml) 10 unit in 1,000 mls @ 500 mls/hr IV .CONTINUOUS JENNIFER Last Admin: 11/01/19 17:00 Dose: 500 mls/hr Nalbuphine HCl (Nubain) 10 mg IVPUSH Q2H PRN PRN Reason: Pain Ondansetron HCl (Zofran) 4 mg IVPUSH Q4H PRN PRN Reason: Nausea/Vomiting Sodium Chloride (Saline Flush) 10 ml FLUSH ASDIRECTED PRN PRN Reason: Keep Vein Open - Infant Interaction Infant Disposition, : [place] in Room with Family Interaction: Holding Infant Feeding: Breastfed Infant; Nursed Well Support Person: - Recovery Exam Fundal Tone: Firm Fundal Level: 1 Fingerbreadths Below Umbilicus Fundal Placement: Midline Lochia Amount: Small Lochia Color: Rubra/Red Perineum Description: Intact, Minimal Bruising/Swelling Episiotomy/Laceration: None Bladder Status: Voiding Urinary Elimination: Voided - Exam General: Alert, Oriented, Cooperative GI/Abdominal Exam: Soft, Non-Tender Extremities: Normal Inspection Skin: Warm, Dry, Intact - Problem List & Annotations (1) 39 weeks gestation of SNOMED Code(s): 85809114 Code(s): Z3A.39 - 39 WEEKS GESTATION OF Status: Acute Current Visit: Yes (2) Vaginal delivery SNOMED Code(s): 835875780 Code(s): O80 - ENCOUNTER FOR FULL-TERM UNCOMPLICATED DELIVERY Status: Acute Current Visit: Yes - Problem List Review Problem List Initiated/Reviewed/Updated: Yes - My Orders Last 24 Hours: My Active Orders 11/01/19 18:11 Activity as Tolerated [RC] PER UNIT ROUTINE Vital Signs [RC] 03,09,15,21 Acetaminophen [Tylenol] 650 mg PO Q4H PRN Benzocaine/Menthol [Dermoplast Pain Relief [place]] See Dose Instructions TOP ASDIRECTED PRN Ibuprofen [Motrin] 600 mg PO Q6H PRN witch Federico [Tucks] 1 pad TOP ASDIRECTED PRN Assess Lochia [WOMSER] Per Unit Routine Assess Uterine Involution [WOMSER] Per Unit Routine Breast Pump [WOMSER] Per Unit Routine Heat Therapy [OM.PC] PRN Ice Therapy [OM.PC] Per Unit Routine Perineal Care [OM.PC] Per Unit Routine Peripheral IV Discontinue [OM.PC] Routine Sitz Bath [OM.PC] Per Unit Routine 11/02/19 18:11 Heat Therapy [OM.PC] PRN - Assessment Assessment:: PPD#1 - Plan Plan:: * Routine cares * Encourage breast feeding * Discharge home today
--- NOTE | 2019-11-02 08:45 | PCM.DCSUM1 ---
Discharge Summary - Discharge Data Discharge Date: 11/02/19 Discharge Disposition: Home, Self-Care 01 Condition: Good - Referral to Home Health Primary Care Physician: Cynthia Vargas MD - Discharge Diagnosis/Problem(s) (1) 39 weeks gestation of SNOMED Code(s): 69458063 ICD Code: Z3A.39 - 39 WEEKS GESTATION OF Status: Acute Current Visit: Yes (2) Vaginal delivery SNOMED Code(s): 335949305 ICD Code: O80 - ENCOUNTER FOR FULL-TERM UNCOMPLICATED DELIVERY Status: Acute Current Visit: Yes - Patient Summary/Data Complications: None Consults: None Recommended Follow-up Testing/Procedures: Follow up in 3 weeks for check Hospital Course: 33 y/o at 39 1/7 wks who presented for IOL. Done with AROM. Progressed well. She had an uncomplicated . See delivery note. did well and was discharged home on PPD#1 - Patient Instructions Diet: Regular Diet as Tolerated Activity: As Tolerated Activity, Other: Pelvic rest for 6 weeks Driving: May Drive Today Showering/Bathing: May Shower Showering/Bathing, Other: May Bathe Notify Provider of: Fever, Increased Pain, Swelling and Redness, Drainage, Nausea and/or Vomiting - Discharge Plan *PRESCRIPTION DRUG MONITORING PROGRAM REVIEWED*: No *COPY OF PRESCRIPTION DRUG MONITORING REPORT IN PATIENT MICHAEL: No Home Medications: Home Meds Docusate Sodium [Colace] 100 mg PO DAILY 01/10/15 [History] 48/Iron/Folic Acid/B6 [Citranatal B-Calm Combo Pack] 1 each PO DAILY [History] Ibuprofen [Motrin] 600 mg PO Q4H PRN tablet 10/06/17 [Rx] Referrals: Cynthia Vargas MD [Primary Care Provider] - (3 weeks for check ) - Discharge Summary/Plan Comment DC Time >30 min.: No - Patient Data Vitals - Most Recent: Last Vital Signs Temp 36.7 C 11/02/19 04:19 Pulse 72 11/02/19 04:19 Resp 14 11/02/19 04:19 BP 111/63 11/02/19 04:19 Pulse Ox 95 11/02/19 04:19 Weight - Most Recent: 104.326 kg I&O - Last 24 hours: Intake & Output 11/01/19 11/02/19 11/02/19 22:59 06:59 14:59 Intake Total 950 240 Balance 950 240 Lab Results - Last 24 hrs: Laboratory Results - last 24 hr 11/01/19 11/01/19 Range/Units 07:50 07:50 RPR Non-reactive (NONREACTIVE) Blood Type B POSITIVE Gel Antibody Screen Negative Med Orders - Current: Current Medications Acetaminophen (Tylenol) 650 mg PO Q4H PRN PRN Reason: mild pain or fever Benzocaine/Menthol (Dermoplast Pain Relief [place]) 0 gm TOP ASDIRECTED PRN PRN Reason: Perineal Comfort Measure Last Admin: 11/01/19 18:21 Dose: 1 applic Ibuprofen (Motrin) 600 mg PO Q6H PRN PRN Reason: Mild pain or fever Last Admin: 11/02/19 08:18 Dose: 600 mg Witch [place] (Tucks) 1 pad TOP ASDIRECTED PRN PRN Reason: Perineal Comfort Measure Last Admin: 11/01/19 18:21 Dose: 1 pad Discontinued Medications Lactated Ringer's (Ringers, Lactated) 1,000 mls @ 40 mls/hr IV ASDIRECTED JENNIFER Oxytocin/Lactated Ringer's (Pitocin In Lr 10 Units/1,000 Ml) 10 unit in 1,000 mls @ 12 mls/hr IV TITRATE JENNIFER; Protocol Oxytocin/Lactated Ringer's (Pitocin In Lr 10 Units/1,000 Ml) 10 unit in 1,000 mls @ 500 mls/hr IV .CONTINUOUS JENNIFER Last Admin: 11/01/19 17:00 Dose: 500 mls/hr Nalbuphine HCl (Nubain) 10 mg IVPUSH Q2H PRN PRN Reason: Pain Ondansetron HCl (Zofran) 4 mg IVPUSH Q4H PRN PRN Reason: Nausea/Vomiting Sodium Chloride (Saline Flush) 10 ml FLUSH ASDIRECTED PRN PRN Reason: Keep Vein Open
[2019-11-02 11:28] VITALS: PULSE 79
[2019-11-02 15:57] VITALS: BP 111/72
== END 2019-11-02 18:45 | disposition home or self-care (01) | DRG 560 ==
LOC: JD.OB 07:11 → OBSVTOIN 16:59 → JD.OB 16:59
PROVIDERS: ADMIT Obstetrics & Gynecology; ATTEND Obstetrics & Gynecology
PROC: 10E0XZZ Delivery of Products of Conception, External Approach (ICD-10-PCS; principal; 2019-11-01)
PROC: 10907ZC Drainage of Amniotic Fluid, Therapeutic from Products of Conception, Via Natural or Artificial Opening (ICD-10-PCS; 2019-11-01)
DX: O99.62 Diseases of the digestive system complicating childbirth (principal); Z3A.39 39 weeks gestation of pregnancy; Z37.0 Single live birth; K21.9 Gastro-esophageal reflux disease without esophagitis; O77.0 Labor and delivery complicated by meconium in amniotic fluid; O69.81X0 Labor and delivery complicated by cord around neck, without compression, not applicable or unspecified; Z79.899 Other long term (current) drug therapy
CPT/HCPCS: 36415; 59025; 59409; 85027; 86592; 86850; 86900; 86901; A9270-GY; J2590

== ENCOUNTER 2021-05-22 03:30 | Inpatient (IN) | payer BC ==
[2021-05-22] MEDS ORDERED: Nalbuphine 10 MG/1 ML Vial IVPUSH PRN (03:44)
[2021-05-22] MEDS ORDERED: Lactated Ringers 1,000 ML IV SCH (03:45)
[2021-05-22] MEDS ORDERED: Oxytocin/Lactated Ringers 10 UNIT/1,000 ML BAG IV SCH ×3 (03:45→22:00)
[2021-05-22] MEDS ORDERED: Sodium Chloride 0.9% 10 ML Syringe FLUSH SCH (09:00)
--- NOTE | 2021-05-22 10:52 | PCM.LDHP ---
L&D History of Present Illness - General Date of Service: 05/22/21 Admit Problem/Dx: Patient Status Order with Admit Dx/Problem 05/22/21 03:44 Patient Status [ADT] Routine Admission Diagnosis/Problem Admission Diagnosis/Problem Source of Information: Patient - History of Present Illness Introduction:: Pearl Duke is a 35-year-old -0-0-4 female at 39 weeks 0 days (JAKE 05/29/2021) by a 7-week ultrasound who presents for elective induction of labor. Patient had been seen on labor and delivery on 05/21/2021 for contractions but did not have active labor at that time. Patient did have some mild range blood pressures on initial monitoring at that time but no evidence of gestational hypertension or preeclampsia. She states that she did have some contractions when she was exercising after she was discharged from the hospital but did not have significant contractions overnight. She denies any leaking of fluid or vaginal bleeding. She reports good movement Timing/Duration: Reports: intermittent (Contractions) Location, : Reports: Pelvic Quality: Reports: Pressure Severity: Moderate Improves with: Reports: None Worsens with: Reports: None Associated Symptoms: Denies: vaginal bleeding, vaginal discharge, vaginal fluid Present Illness Comments:: Pearl Duke is a 35-year-old -0-0-4 female at 39 weeks 0 days (JAKE 05/29/2021) by a 7-week ultrasound who presents for elective induction of labor. She has had routine care with Dr. Vargas starting at 7 weeks gestational age. She states that the was overall uncomplicated. She had an elevated 1 hour glucose tolerance test with a normal 3-hour glucose tolerance test. She received Tdap on 04/14/2021. She did not receive the influenza or COVID-19 vaccine during . She did have a positive hepatitis C antibody test with negative HCV RNA viral testing. Her regular provider felt that this was due to a false positive for the hepatitis C antibody test. Her is complicated by: * History of gestational hypertension in her first and is currently on aspirin * History of gestational diabetes in her second with normal testing during this * Suspected false positive testing for hepatitis C with positive hepatitis C antibody and negative hepatitis C viral testing [employer] history -0-0-4 G1: 08/08/2013, 37 weeks, , female , 7 pounds 14 ounces, gestational hypertension G2: 01/10/2015, 38 weeks 3 days, , male , 9 pounds 1 ounce, gestational diabetes G3: 10/05/2017, 40 weeks, , female infant, 9 pounds 6 ounces, no complications G4: 11/01/2019, 39 weeks 1 day, , 9 pounds 8 ounces, no complications G5: Current labs Blood type: B+ Antibody screen: Negative First trimester hematocrit/hemoglobin: 41.7%/14.7 on 11/17/2020 Platelets: 181 on 11/17/2020 Urine culture: Consistent with contamination Rubella status: Immune Hepatitis B surface antigen: Negative RPR: Negative Hepatitis C: Antibody positive, viral load undetectable, presumed false positive HIV: Negative Gonorrhea: Negative Chlamydia: Negative One hour glucose tolerance test: 144 Second trimester hematocrit/hemoglobin: 37.5%/13.1 on 03/17/2021 Platelets: 181 on 03/17/2021 3-hour glucose tolerance test: Fasting 85, 1 hour 162, 2-hour 125, 3-hour 59 GBS status: Negative - Related Data Allergies/Adverse Reactions: Allergies Allergy/AdvReac Type Severity Reaction Status Date / Time No Known Allergies Allergy Verified 05/21/21 08:33 Home Medications: Home Meds 48/Iron/Folic Acid/B6 [Citranatal B-Calm Combo Pack] 1 each PO DAILY 01/10/15 [History] Past Medical History Cardiovascular History: Reports: Other (See Below) (Hx of gestational HTN) Gastrointestinal History: Reports: Gastritis, GERD, Hemorrhoids, Other (See Below) Other Gastrointestinal History: Anal fissure [employer] History: Reports: , Other (See Below) Other OB/BYN History: Hx of GDM and PIH in previous pregnancies Endocrine/Metabolic History: Reports: Diabetes, Gestational, Other (See Below) Other Endocrine/Metabolic History: Hx of GDM with previous - Infectious Disease History Infectious Disease History: Reports: Chicken Pox, Hepatitis C - Past Surgical History HEENT Surgical History: Reports: Oral Surgery, Other (See Below) Other HEENT Surgeries/Procedures: [place] teeth GI Surgical History: Reports: EGD Endocrine Surgical History: Reports: None Social & Family History - Family History Family Medical History: No Pertinent Family History HEENT: Reports: None Cardiac: Reports: None - Tobacco Use Tobacco Use Status *Q: Never Tobacco User - Tobacco Core Measures Tobacco Use/Smoking Within Last 30 Days: No Smokeless Tobacco Use in Last 30 Days: No - Caffeine Use Caffeine Use: Reports: None - Alcohol Use Alcohol Use History: No - Recreational Drug Use Recreational Drug Use: No - Living Situation & Occupation Living situation: Reports: H&P Review of Systems - Review of Systems: Review Of Systems: See Below General: Denies: Fever, Chills, Malaise, Weakness, Fatigue HEENT: Denies: Headaches, Rhinitis, Post Nasal Drip, Sore Throat, Visual Changes Pulmonary: Denies: Shortness of Breath, Wheezing, Pleuritic Chest Pain, Cough Cardiovascular: Denies: Chest Pain, Palpitations, Dyspnea on Exertion, Orthopnea Gastrointestinal: Denies: Abdominal Pain, Constipation, Diarrhea, Nausea, Vomiting Genitourinary: Denies: Dysuria, Frequency, Burning, Pain, Urgency Musculoskeletal: Reports: Back Pain (and hip pain of ) Skin: Denies: Rash, Lesions Psychiatric: Denies: Depression, Anxiety L&D Exam - Exam Exam: See Below - Vital Signs Vital Signs: Last Vital Signs Temp 36.6 C 05/22/21 03:44 Pulse 95 05/22/21 03:44 Resp 18 05/22/21 03:44 BP 124/79 05/22/21 03:44 Pulse Ox 98 05/22/21 03:44 Weight: 104.78 kg - OB Specific Contraction Duration (sec): 60-75 Contraction Frequency (min): 4-7 Contraction Intensity: Moderate Movement: Active Heart Tones: Present Heart Tones per Min: 130 (+15 x 15 accelerations, no decelerations) Heart Rate (FHR) Variability: Moderate (6-25 bpm) Presentation: Vertex (Confirmed by bedside ultrasound) - Pena Score Pena Score Cervix Position: Midposition Pena Score Consistency: Medium Pena Score Effacement: 51-70% (70%) Pena Score Dilation: 3-4 cm (3 cm) Pena Score 's Station: -3 (-4) Pena Score Total: 6 - Exam General: Alert, Oriented HEENT: Conjunctiva Clear, EOMI Neck: Supple, Trachea Midline Lungs: Clear to Auscultation, Normal Respiratory Effort Cardiovascular: Regular Rate, Regular Rhythm GI/Abdominal Exam: Soft, No Distention, Other (Gravid). No: Guarding, Rigid, Rebound Genitourinary: Normal external exam Extremities: Normal Inspection, No Pedal Edema Skin: Warm, Dry, Intact Psychiatric: Alert, Normal Affect, Normal Mood - Patient Data Lab Results Last 24 hrs: Laboratory Results - last 24 hr 05/22/21 05/22/21 05/22/21 Range/Units 03:47 04:05 04:05 WBC 7.49 (3.98-10.04) K/mm3 RBC 3.89 L (3.98-5.22) M/mm3 Hgb 12.7 (11.2-15.7) gm/dl Hct 37.6 (34.1-44.9) % MCV 96.7 H (79.4-94.8) fl MCH 32.6 H (25.6-32.2) pg MCHC 33.8 (32.2-35.5) g/dl RDW Std Deviation 45.2 (36.4-46.3) fL Plt Count 167 L (182-369) K/mm3 MPV 10.5 (9.4-12.3) fl Neut % (Auto) 61.6 (34.0-71.1) % Lymph % (Auto) 24.2 (19.3-51.7) % [place] % (Auto) 12.6 H (4.7-12.5) % Eos % (Auto) 1.2 (0.7-5.8) Baso % (Auto) 0.1 (0.1-1.2) % Neut # (Auto) 4.62 (1.56-6.13) K/mm3 Lymph # (Auto) 1.81 (1.18-3.74) K/mm3 [place] # (Auto) 0.94 H (0.24-0.36) K/mm3 Eos # (Auto) 0.09 (0.04-0.36) K/mm3 Baso # (Auto) 0.01 (0.01-0.08) K/mm3 SARS-CoV-2 RNA (SUKH) Negative (NEGATIVE) Blood Type B POSITIVE Gel Antibody Screen Negative Result Diagrams: 05/22/21 04:05 - Problem List (1) History of gestational hypertension SNOMED Code(s): 942429680 ICD Code: Z87.59 - PERSONAL HISTORY OF COMP OF PREG, CHLDBRTH AND THE PUERP Status: Acute Current Visit: Yes (2) History of gestational diabetes SNOMED Code(s): 925089433 ICD Code: Z86.32 - PERSONAL HISTORY OF GESTATIONAL DIABETES Status: Acute Current Visit: Yes (3) History of gestational diabetes in prior , currently in third trimester SNOMED Code(s): 392477870, 028811644 ICD Code: O09.293 - SUPRVSN OF PREG W POOR REPRODCTV OR OBSTET HX, THIRD TRI; Z86.32 - PERSONAL HISTORY OF GESTATIONAL DIABETES Status: Acute Current Visit: Yes (4) 39 weeks gestation of SNOMED Code(s): 06289167 ICD Code: Z3A.39 - 39 WEEKS GESTATION OF Status: Acute Current Visit: No Problem List Initiated/Reviewed/Updated: Yes Orders Last 24hrs: Active Orders 24 hr Category Date Time Status Patient Status [ADT] Routine ADT 05/22/21 03:44 Active Activity as Tolerated [RC] PFP Care 05/22/21 03:44 Active Communication Order [RC] ASDIRECTED Care 05/22/21 03:44 Active Non Stress Test [RC] PER UNIT ROUTINE Care 05/22/21 03:44 Active Notify Provider [RC] PFP Care 05/22/21 03:44 Active Notify Provider [RC] PRN Care 05/22/21 03:44 Active Peripheral IV Care [RC] . DIRECTED Care 05/22/21 03:44 Active Pump Management, Intrathecal [RC] ASDIRECTED Care 05/22/21 03:45 Active Urinary Catheter Assessment [RC] ASDIRECTED Care 05/22/21 03:44 Active Vital Signs [RC] PER UNIT ROUTINE Care 05/22/21 03:44 Active Regular Diet [DIET] Diet 05/22/21 Breakfast Active RAPID PLASMA REAGIN,RPR [CHEM] Routine Lab 05/22/21 04:05 Received Lactated Ringers [Ringers, Lactated] 1,000 ml Med 05/22/21 03:45 Active IV ASDIRECTED Nalbuphine [Nubain] Med 05/22/21 03:44 Active 10 mg IVPUSH Q2H PRN Oxytocin/Lactated Ringers [Pitocin in LR 10 Units/1,000 Med 05/22/21 03:45 Active ML] 10 unit in 1,000 ml IV .CONTINUOUS Oxytocin/Lactated Ringers [Pitocin in LR 10 Units/1,000 Med 05/22/21 03:45 Active ML] 10 unit in 1,000 ml IV TITRATE Sodium Chloride 0.9% [Saline Flush] Med 05/22/21 09:00 Active 10 ml FLUSH ASDIRECTED Electronic Heart Tones Ext w TOCO [WOMSER] Oth 05/22/21 03:44 Ordered Routine Electronic Heart Tones Internal [WOMSER] Per Unit Oth 05/22/21 03:44 Ordered Routine Peripheral IV Insertion Adult [OM.PC] Routine Oth 05/22/21 03:44 Ordered Resuscitation Status Routine Resus Stat 05/22/21 03:44 Ordered Medication Orders Oxytocin/Lactated Ringer's (Pitocin In Lr 10 Units/1,000 Ml) 10 unit in 1,000 mls @ 12 mls/hr IV TITRATE JENNIFER; Protocol Last Titration: 05/22/21 09:11 Dose: 0 munits/min, 0 mls/hr Documented by: Titration: 05/22/21 08:32 Dose: 6 munits/min, 36 mls/hr Documented by: Titration: 05/22/21 06:45 Dose: 4 munits/min, 24 mls/hr Documented by: Admin: 05/22/21 05:33 Dose: 2 munits/min, 12 mls/hr Documented by: MISTI Oxytocin/Lactated Ringer's (Pitocin In Lr 10 Units/1,000 Ml) 10 unit in 1,000 mls @ 500 mls/hr IV .CONTINUOUS JENNIFER Lactated Ringer's (Ringers, Lactated) 1,000 mls @ 100 mls/hr IV ASDIRECTED JENNIFER Last Admin: 05/22/21 05:32 Dose: 100 mls/hr Documented by: MISTI Nalbuphine HCl (Nalbuphine 10 Mg/1 Ml Vial) 10 mg IVPUSH Q2H PRN PRN Reason: Pain Sodium Chloride (Sodium Chloride 0.9% 10 Ml Syringe) 10 ml FLUSH ASDIRECTED JENNIFER Assessment/Plan Comment:: Pearl Duke is a 35-year-old -0-0-4 female at 39 weeks 0 days undergoing elective induction of labor with complicated by history of gestational hypertension and history of gestational diabetes Prior to artificial rupture membranes patient was counseled on the findings of the positive hepatitis C antibody with undetectable viral load and possibly that there could be a false negative for the hepatitis C viral load and that she does have a low level of hepatitis C infection that could be passed through vertical transmission to the . Patient states that she does not have any significant risk factors for hepatitis C infection. Patient has never had any testing done in the past and has never had an episode with viral hepatitis. Patient desired to proceed with artificial rupture membranes and stated understanding that there could potentially be increased risk of vertical transmission of hepatitis C to the with prolonged rupture of membranes if there is hepatitis C virus present in vaginal or bloody secretions. Patient underwent artificial rupture membranes with return of small amount of clear fluid. Mother and infant tolerated procedure without difficulty. Refer to observation for elective induction of labor Patient previously on Pitocin to start induction of labor but patient desires to see if her body will respond without Pitocin after artificial rupture membranes Patient had artificial rupture membranes with small amount of clear fluid. Continuous monitoring Place IV and have Lactated Ringer's at 125 ml/hr May have small amounts of regular diet Activity as tolerated May have epidural as desired Plans to breast-feed after delivery Anticipate vaginal delivery unless otherwise indicated Gigi Estes MD 10:58 AM 05/22/2021
--- NOTE | 2021-05-22 21:57 | PCM.DEL ---
L & D Note - General Info Date of Service: 05/22/21 Mother's Due Date: 05/29/21 - Delivery Note Labor: Augmented by ARM, Augmented by Oxytocin Delivery Outcome: Livebirth Delivery Method: Spontaneous Vaginal Delivery-Single Presentation: Left Occiput Anterior (GIANCARLO) Nuchal Cord: None Anesthesia Type: None Episiotomy Type: None Laceration: None Placenta: Intact, Spontaneous Cord: 3 Vessels Estimated Blood Loss: 300 Resuscitation Needed: Yes : Bulb Syringe, Stimulated, Warmed, Transfer Used, Warmer Used Provider: Cynthia Vargas Score 1 min: 7 Score 5 min: 9 Second Stage Interventions: Reports: Pushing Effectively, Pushing, Pulls Own Legs Back Delivery Comments (Free Text/Narrative):: Stage I: Pearl Duke was admitted for elective induction of labor. On admission her cervix was dilated to 1 to 2 cm. She was GBS negative. She was started on Pitocin for induction of labor. She had artificial rupture membranes with return of small amount of clear fluid. Patient desires to have her Pitocin stopped to see if she would go into spontaneous labor with contractions at that time. After several hours of minimal contractions without augmentation she was rechecked and had minimal change from earlier in the morning after she had rupture of membranes. She was started on Pitocin for augmentation of labor. Patient with ongoing mild range blood pressures throughout the day without any severe range blood pressures. Patient with gestational hypertension based on these mild range blood pressures that have persisted into induction today. She made slow progress throughout the day on Pitocin. She proceeded to complete and pushing. Stage II: On 05/22/2021 she had a normal vaginal delivery of a live male at 21:17. Apgars of 7 & 9. Weight of 4860 g (10 lbs 11.4 oz). Length of 23.5 inches. There was no nuchal cord. Infant was delivered in GIANCARLO position. The cord was doubly clamped and cut by grandmother of the infant. Infant was placed on mother's abdomen and then taken to the warmer for further resuscitation. Stage III: She had a spontaneous delivery of an intact placenta in [place] presentation. Three vessel cord. She was given pitocin and fundal massage. She had no lacerations. Mom and baby were stable to recovery. EBL of 200 mL. Gigi Estes MD 9:59 PM 05/22/2021 Induction Criteria - Pena Score Pena Score Dilation: 1-2 cm Pena Score Effacement: 60-70% Pena Score 's Station: -3 Pena Score Consistency: Medium Pena Score Cervix Position: Midposition Pena Score Total: 5 Pena Score Presenting Part: Reports: Cephalic - Induction Gestational Age >/= 39 wks: Yes Estimated Pelvis: Reports: Adequate Reassuring Monitoring Strip: Yes Absence of Tachy Systole: Yes - Augmentation Estimated Pelvis: Reports: Adequate Weight Estimated:: Reports: AGA Reassuring Monitoring Strip: Yes Absence of Tachy Systole: Yes - General Info Date of Service: 05/22/21 - Patient Data Vitals - Most Recent: Last Vital Signs Temp 36.6 C 05/22/21 03:44 Pulse 95 05/22/21 03:44 Resp 18 05/22/21 03:44 BP 124/79 05/22/21 03:44 Pulse Ox 98 05/22/21 03:44 Weight - Most Recent: 104.78 kg I&O - Last 24 Hours: Intake & Output 05/22/21 05/22/21 05/22/21 06:59 14:59 22:59 Intake Total 180 180 Balance 180 180 Lab Results Last 24 Hours: Laboratory Results - last 24 hr 05/22/21 05/22/21 05/22/21 Range/Units 03:47 04:05 04:05 WBC 7.49 (3.98-10.04) K/mm3 RBC 3.89 L (3.98-5.22) M/mm3 Hgb 12.7 (11.2-15.7) gm/dl Hct 37.6 (34.1-44.9) % MCV 96.7 H (79.4-94.8) fl MCH 32.6 H (25.6-32.2) pg MCHC 33.8 (32.2-35.5) g/dl RDW Std Deviation 45.2 (36.4-46.3) fL Plt Count 167 L (182-369) K/mm3 MPV 10.5 (9.4-12.3) fl Neut % (Auto) 61.6 (34.0-71.1) % Lymph % (Auto) 24.2 (19.3-51.7) % [place] % (Auto) 12.6 H (4.7-12.5) % Eos % (Auto) 1.2 (0.7-5.8) Baso % (Auto) 0.1 (0.1-1.2) % Neut # (Auto) 4.62 (1.56-6.13) K/mm3 Lymph # (Auto) 1.81 (1.18-3.74) K/mm3 [place] # (Auto) 0.94 H (0.24-0.36) K/mm3 Eos # (Auto) 0.09 (0.04-0.36) K/mm3 Baso # (Auto) 0.01 (0.01-0.08) K/mm3 SARS-CoV-2 RNA (SUKH) Negative (NEGATIVE) Blood Type B POSITIVE Gel Antibody Screen Negative Med Orders - Current: Current Medications Oxytocin/Lactated Ringer's (Pitocin In Lr 10 Units/1,000 Ml) 10 unit in 1,000 mls @ 12 mls/hr IV TITRATE JENNIFER; Protocol Last Titration: 05/22/21 17:27 Dose: 8 munits/min, 48 mls/hr Documented by: Oxytocin/Lactated Ringer's (Pitocin In Lr 10 Units/1,000 Ml) 10 unit in 1,000 mls @ 500 mls/hr IV .CONTINUOUS JENNIFER Lactated Ringer's (Ringers, Lactated) 1,000 mls @ 100 mls/hr IV ASDIRECTED JENNIFER Last Admin: 05/22/21 05:32 Dose: 100 mls/hr Documented by: Nalbuphine HCl (Nalbuphine 10 Mg/1 Ml Vial) 10 mg IVPUSH Q2H PRN PRN Reason: Pain Sodium Chloride (Sodium Chloride 0.9% 10 Ml Syringe) 10 ml FLUSH ASDIRECTED JENNIFER - Problem List & Annotations (1) History of gestational hypertension SNOMED Code(s): 997474865 Code(s): Z87.59 - PERSONAL HISTORY OF COMP OF PREG, CHLDBRTH AND THE PUERP Status: Acute Current Visit: Yes (2) History of gestational diabetes SNOMED Code(s): 117609154 Code(s): Z86.32 - PERSONAL HISTORY OF GESTATIONAL DIABETES Status: Acute Current Visit: Yes (3) History of gestational diabetes in prior , currently in third trimester SNOMED Code(s): 278285605, 361783108 Code(s): O09.293 - SUPRVSN OF PREG W POOR REPRODCTV OR OBSTET HX, THIRD TRI; Z86.32 - PERSONAL HISTORY OF GESTATIONAL DIABETES Status: Acute Current Visit: Yes (4) 39 weeks gestation of SNOMED Code(s): 18985788 Code(s): Z3A.39 - 39 WEEKS GESTATION OF Status: Acute Current Visit: No (5) Gestational hypertension SNOMED Code(s): 07407196 Code(s): O13.9 - GESTATIONAL HTN W/O SIGNIFICANT PROTEINURIA, UNSP TRIMESTER Status: Acute Current Visit: Yes (6) Vaginal delivery SNOMED Code(s): 263890630 Code(s): O80 - ENCOUNTER FOR FULL-TERM UNCOMPLICATED DELIVERY Status: Acute Current Visit: No - Problem List Review Problem List Initiated/Reviewed/Updated: Yes - My Orders Last 24 Hours: My Active Orders 05/22/21 03:44 Patient Status [ADT] Routine Activity as Tolerated [RC] PFP Communication Order [RC] ASDIRECTED Non Stress Test [RC] PER UNIT ROUTINE Notify Provider [RC] PFP Notify Provider [RC] PRN Peripheral IV Care [RC] . DIRECTED Urinary Catheter Assessment [RC] ASDIRECTED Vital Signs [RC] PER UNIT ROUTINE Nalbuphine [Nubain] 10 mg IVPUSH Q2H PRN Electronic Heart Tones Ext w TOCO [WOMSER] Routine Electronic Heart Tones Internal [WOMSER] Per Unit Routine Peripheral IV Insertion Adult [OM.PC] Routine Resuscitation Status Routine 05/22/21 03:45 Pump Management, Intrathecal [RC] ASDIRECTED Lactated Ringers [Ringers, Lactated] 1,000 ml IV ASDIRECTED Oxytocin/Lactated Ringers [Pitocin in LR 10 Units/1,000 ML] 10 unit in 1,000 ml IV .CONTINUOUS Oxytocin/Lactated Ringers [Pitocin in LR 10 Units/1,000 ML] 10 unit in 1,000 ml IV TITRATE 05/22/21 04:05 RAPID PLASMA REAGIN,RPR [CHEM] Routine 05/22/21 Breakfast Regular Diet [DIET] 05/22/21 09:00 Sodium Chloride 0.9% [Saline Flush] 10 ml FLUSH ASDIRECTED 05/22/21 21:46 Patient Status Manage Transfer [TRANSFER] Routine - Plan Plan:: Pearl Duke is a 35-year-old G5 now P5-0-0-5 female status post , PPD #0, with diagnosis of gestational hypertension during labor and compli cated by history of gestational hypertension and history of gestational diabetes Admit to inpatient following normal spontaneous vaginal delivery Continue Pitocin per unit protocol following delivery of placenta and lactated Ringer's until tolerating regular diet Regular diet Vitals per unit routine Continue close monitoring of blood pressures to ensure that there are not any severe range blood pressures that would necessitate treatment Ibuprofen and Tylenol for pain control Assist with breast-feeding as needed Continue to monitor lochia Anticipate discharge home on day #1 depending on status Gigi Estes MD 9:59 PM 05/22/2021
[2021-05-22] MEDS ORDERED: Docusate Sodium 100 MG Cap PO PRN (21:58)
[2021-05-22] MEDS ORDERED: Benzocaine/Menthol 20%-0.5% Spray 78 GM Cannister TOP PRN (21:58)
[2021-05-22] MEDS ORDERED: Magnesium Hydroxide 400 MG/5 ML Susp 30 ML Cup PO PRN (21:58)
[2021-05-22] MEDS ORDERED: Witch Hazel Medicated Pads 40/Jar TOP PRN (21:58)
[2021-05-23] MEDS: Ibuprofen 600 MG Tab PO PRN ×4 (02:05→21:41)
[2021-05-23] MEDS: Acetaminophen 325 MG Tab PO PRN ×3 (05:13→17:50)
[2021-05-23] MEDS: Prenatal Multivitamin with Calcium/Folic Acid/Iron Tab PO SCH (08:11)
--- NOTE | 2021-05-23 11:28 | PCM.SN.2 ---
- Free Text/Narrative Note: Post Progress Note PPD #1 Subjective: Doing well overall. Ambulating without difficulty this morning. She reports that she did have some feelings of soreness in her hips and pelvis immediately after delivery. Lochia minimal. Voiding without difficulty. Tolerating regular diet without nausea or vomiting. Pain controlled with oral medications. Breast-feeding with minimal difficulty. Objective: Vitals: Vital Signs - 24 hr 05/23/21 05/23/21 01:57 08:05 Temperature 36.2 C 36.5 C Pulse, 76 73 Peripheral Respiratory 15 16 Rate Blood Pressure 135/75 119/69 O2 Sat by Pulse 97 96 Oximetry Physical Exam General: Alert and oriented, no acute distress Lungs: Clear to auscultation bilaterally Heart: Regular rate and rhythm Abdomen: Soft, minimal appropriate tenderness, non-distended, fundus midline, nontender, and at the umbilicus Extremities: Trace edema in bilateral lower extremities to mid shins, no calf tenderness bilaterally ASSESSMENT: 35-year-old female -0-0-5 s/p normal vaginal delivery PPD #1, complicated by gestational hypertension during labor and macrosomic infant, possible false positive hepatitis C testing with positive hepatitis C antibody levels and undetectable hepatitis C viral load levels, history of gestational hypertension and history of gestational diabetes PLAN: Doing well Breast-feeding with minimal difficulty. Assist as needed Lochia minimal. Continue to monitor for appropriate lochia. Continue routine care Patient with normal blood pressures and no mild range blood pressures overnight. Continue to monitor closely for any severe range blood pressures that may require treatment Anticipate discharge home tomorrow due to status Gigi Estes MD 11:28 AM 05/23/2021
[2021-05-24] MEDS: Acetaminophen 325 MG Tab PO PRN (00:42)
[2021-05-24] MEDS: Ibuprofen 600 MG Tab PO PRN (03:22)
[2021-05-24 09:15] VITALS: BP 125/83; PULSE 85
[2021-05-24] MEDS: Prenatal Multivitamin with Calcium/Folic Acid/Iron Tab PO SCH (09:24)
--- NOTE | 2021-05-24 09:51 | PCM.SN.2 ---
- Free Text/Narrative Note: Post Progress Note PPD #2 Subjective: Doing well overall. Ambulating without difficulty. Lochia minimal. Voiding without difficulty. Tolerating regular diet without nausea or vomiting. Pain controlled with oral medications. Breast-feeding with minimal difficulty. Objective: Vitals: Vital Signs - 24 hr 05/23/21 05/23/21 05/24/21 15:17 21:20 03:24 Temperature 36.3 C 36.2 C 36.2 C Pulse, 77 75 88 Peripheral Respiratory 18 14 14 Rate Blood Pressure 131/86 125/71 119/72 O2 Sat by Pulse 96 97 95 Oximetry 05/24/21 09:08 Temperature 36.9 C Pulse, 85 Peripheral Respiratory 16 Rate Blood Pressure 125/83 O2 Sat by Pulse 97 Oximetry Physical Exam General: Alert and oriented, no acute distress Lungs: Clear to auscultation bilaterally Heart: Regular rate and rhythm Abdomen: Soft, minimal appropriate tenderness, non-distended, umbilical hernia that measures approximately 4 cm when not reduced but able to be reduced without difficulty, fundus midline, nontender, and 1 fingerbreadth below the umbilicus Extremities: Trace edema in bilateral lower extremities to mid shins, no calf tenderness bilaterally ASSESSMENT: 35-year-old female -0-0-5 s/p normal vaginal delivery PPD #2, complicated by gestational hypertension during labor and macrosomic infant, possible false positive hepatitis C testing with positive hepatitis C antibody levels and undetectable hepatitis C viral load levels, history of gestational hypertension and history of gestational diabetes PLAN: Doing well Breast-feeding with minimal difficulty. Assist as needed Lochia minimal. Continue to monitor for appropriate lochia. Continue routine care Patient counseled on her umbilical hernia and concerning symptoms Patient with normal blood pressures and no mild range blood pressures overnight. Continue to monitor closely for any severe range blood pressures that may require treatment Discharge home today Gigi Estes MD 9:51 AM 05/24/2021
--- NOTE | 2021-05-24 09:58 | PCM.DCSUM1 ---
Discharge Summary - Hospital Course Free Text/Narrative:: - General Info Date of Service: 05/22/21 Mother's Due Date: 05/29/21 - Delivery Note Labor: Augmented by ARM, Augmented by Oxytocin Delivery Outcome: Livebirth Delivery Method: Spontaneous Vaginal Delivery-Single Presentation: Left Occiput Anterior (GIANCARLO) Nuchal Cord: None Anesthesia Type: None Episiotomy Type: None Laceration: None Placenta: Intact, Spontaneous Cord: 3 Vessels Estimated Blood Loss: 300 Resuscitation Needed: Yes [place]: Bulb Syringe, Stimulated, Warmed, [place] Used, Warmer Used Provider: Cynthia Vargas Score 1 min: 7 Score 5 min: 9 Second Stage Interventions: Reports: Pushing Effectively, Pushing, Pulls Own Legs Back Delivery Comments (Free Text/Narrative):: Stage I: Pearl Duke was admitted for elective induction of labor. On admission her cervix was dilated to 1 to 2 cm. She was GBS negative. She was started on Pitocin for induction of labor. She had artificial rupture membranes with return of small amount of clear fluid. Patient desires to have her Pitocin stopped to see if she would go into spontaneous labor with contractions at that time. After several hours of minimal contractions without augmentation she was rechecked and had minimal change from earlier in the morning after she had rupture of membranes. She was started on Pitocin for augmentation of labor. Patient with ongoing mild range blood pressures throughout the day without any severe range blood pressures. Patient with gestational hypertension based on these mild range blood pressures that have persisted into induction today. She made slow progress throughout the day on Pitocin. She proceeded to complete and pushing. Stage II: On 05/22/2021 she had a normal vaginal delivery of a live male at 21:17. Apgars of 7 & 9. Weight of 4860 g (10 lbs 11.4 oz). Length of 23.5 inches. There was no nuchal cord. Infant was delivered in GIANCARLO position. The cord was doubly clamped and cut by grandmother of the infant. Infant was placed on mother's abdomen and then taken to the warmer for further resuscitation. Stage III: She had a spontaneous delivery of an intact placenta in [place] presentation. Three vessel cord. She was given pitocin and fundal massage. She had no lacerations. Mom and baby were stable to recovery. EBL of 200 mL. Diagnosis: Stroke: No - Discharge Data Discharge Date: 05/24/21 Discharge Disposition: Home, Self-Care 01 Condition: Good - Referral to Home Health Primary Care Physician: Cynthia Vargas MD - Discharge Diagnosis/Problem(s) (1) History of gestational hypertension SNOMED Code(s): 376485971 ICD Code: Z87.59 - PERSONAL HISTORY OF COMP OF PREG, CHLDBRTH AND THE PUERP Status: Acute Current Visit: Yes (2) History of gestational diabetes SNOMED Code(s): 768266399 ICD Code: Z86.32 - PERSONAL HISTORY OF GESTATIONAL DIABETES Status: Acute Current Visit: Yes (3) History of gestational diabetes in prior , currently in third trimester SNOMED Code(s): 554487228, 874378194 ICD Code: O09.293 - SUPRVSN OF PREG W POOR REPRODCTV OR OBSTET HX, THIRD TRI; Z86.32 - PERSONAL HISTORY OF GESTATIONAL DIABETES Status: Acute Current Visit: Yes (4) 39 weeks gestation of SNOMED Code(s): 56426464 ICD Code: Z3A.39 - 39 WEEKS GESTATION OF Status: Acute Current Visit: No (5) Gestational hypertension SNOMED Code(s): 19383041 ICD Code: O13.9 - GESTATIONAL HTN W/O SIGNIFICANT PROTEINURIA, UNSP TRIMESTER Status: Acute Current Visit: Yes (6) Vaginal delivery SNOMED Code(s): 208432671 ICD Code: O80 - ENCOUNTER FOR FULL-TERM UNCOMPLICATED DELIVERY Status: Acute Current Visit: No - Patient Summary/Data Complications: None Consults: None Hospital Course: Pearl Duke was admitted for elective induction of labor. On admission her cervix was dilated to 1-2 cm. She was GBS negative. She was given pitocin for augmentation. She had artificial rupture of membranes with clear fluid. She stopped the Pitocin at time of rupture of membranes to see if her body would continue with labor naturally. After several hours monitoring without Pitocin she was not making any change and was restarted on Pitocin for augmentation of labor. During labor she was noted to have ongoing mild range blood pressures and based on labs that have been done the day prior was felt that this was due to gestational hypertension. No additional treatment was needed at this time. She slowly progressed to complete throughout the afternoon and evening and began pushing. On 05/22/2021 she had a normal vaginal delivery of a live male infant at 21:17. Apgars of 7 and 9. Weight of 4860 g (10 pounds 11.4 ounces). Her course was uneventful. Her pain was well controlled and she had minimal lochia. She was ambulating, tolerating a regular diet and voiding normally. She was breast-feeding with minimal difficulty. She was afebrile and her hematocrit was 37.6 on admission. She desired to be discharged home on the morning of PPD #2. Her blood type is B+. - Patient Instructions Diet: Regular Diet as Tolerated Activity: Apply Ice, As Tolerated Activity, Other: Nothing in the vagina for 6 weeks Driving: May Drive Today Showering/Bathing: May Shower Notify Provider of: Fever, Increased Pain, Swelling and Redness, Drainage, Nausea and/or Vomiting Other/Special Instructions: Please contact your physician's office if you have heavy vaginal bleeding enough to soak a pad in less than an hour for several hours. Monitor for any signs of an infection in the breasts with severe pain or redness of the breast. Please contact your physician's office if you have a severe headache that does not improve with Tylenol or ibuprofen, spots in your vision or severe pain in your upper abdomen. - Discharge Plan *PRESCRIPTION DRUG MONITORING PROGRAM REVIEWED*: Not Applicable *COPY OF PRESCRIPTION DRUG MONITORING REPORT IN PATIENT MICHAEL: Not Applicable Home Medications: Home Meds 48/Iron/Folic Acid/B6 [Citranatal B-Calm Combo Pack] 1 each PO DAILY 01/10/15 [History] Acetaminophen [Tylenol] 650 mg PO Q6H PRN tablet 05/24/21 [Rx] Benzocaine/Menthol [Dermoplast Pain Relief 20%-0.5% Mereta] 1 spray TOP ASDIRECTED PRN canister 05/24/21 [Rx] Docusate Sodium [Colace] 100 mg PO BID PRN cap 05/24/21 [Rx] Ibuprofen [Motrin] 600 mg PO Q6H PRN tablet 05/24/21 [Rx] witch Malaika [Tucks] 1 pad TOP ASDIRECTED PRN pad 05/24/21 [Rx] Patient Handouts: Care After Vaginal Delivery Referrals: Cynthia Vargas MD [Primary Care Provider] - (Follow-up within 1 week after delivery for visit and blood pressure check) - Discharge Summary/Plan Comment DC Time >30 min.: No Total # of Minutes for Discharge Time: 15 minutes - Patient Data Vitals - Most Recent: Last Vital Signs Temp 36.9 C 05/24/21 09:08 Pulse 85 05/24/21 09:08 Resp 16 05/24/21 09:08 BP 125/83 05/24/21 09:08 Pulse Ox 97 05/24/21 09:08 Weight - Most Recent: 104.78 kg Med Orders - Current: Current Medications Acetaminophen (Acetaminophen 325 Mg Tab) 650 mg PO Q6H PRN PRN Reason: mild pain or fever Last Admin: 05/24/21 00:42 Dose: 650 mg Documented by: Benzocaine/Menthol (Benzocaine/Menthol 20%-0.5% Mereta 78 Gm Cannister) 0 gm TOP ASDIRECTED PRN PRN Reason: Perineal Comfort Measure Docusate Sodium (Docusate Sodium 100 Mg Cap) 100 mg PO BID PRN PRN Reason: Constipation Oxytocin/Lactated Ringer's (Pitocin In Lr 10 Units/1,000 Ml) 10 unit in 1,000 mls @ 100 mls/hr IV TITRATE JENNIFER; Protocol Ibuprofen (Ibuprofen 600 Mg Tab) 600 mg PO Q6H PRN PRN Reason: Mild pain or fever Last Admin: 05/24/21 03:22 Dose: 600 mg Documented by: Magnesium Hydroxide (Magnesium Hydroxide 400 Mg/5 Ml Susp 30 Ml Cup) 30 ml PO BEDTIME PRN PRN Reason: Constipation Prenat Multivit/[place]/Iron/Folic Ac ( Multivitamin With Calcium/Folic Acid/Iron Tab) 1 each PO DAILY JENNIFER Last Admin: 05/24/21 09:24 Dose: 1 each Documented by: Billy Dai (Witch Malaika Medicated Pads 40/Jar) 1 pad TOP ASDIRECTED PRN PRN Reason: Perineal Comfort Measure Discontinued Medications Oxytocin/Lactated Ringer's (Pitocin In Lr 10 Units/1,000 Ml) 10 unit in 1,000 mls @ 12 mls/hr IV TITRATE JENNIFER; Protocol Last Titration: 05/22/21 22:15 Dose: 41.67 munits/min, 250 mls/hr Documented by: Oxytocin/Lactated Ringer's (Pitocin In Lr 10 Units/1,000 Ml) 10 unit in 1,000 mls @ 500 mls/hr IV .CONTINUOUS JENNIFER Lactated Ringer's (Ringers, Lactated) 1,000 mls @ 100 mls/hr IV ASDIRECTED [facility] Last Admin: 05/22/21 05:32 Dose: 100 mls/hr Documented by: Nalbuphine HCl (Nalbuphine 10 Mg/1 Ml Vial) 10 mg IVPUSH Q2H PRN PRN Reason: Pain Sodium Chloride (Sodium Chloride 0.9% 10 Ml Syringe) 10 ml FLUSH ASDIRECTED [facility]
== END 2021-05-24 11:52 | disposition home or self-care (01) | DRG 560 ==
LOC: JD.OB 03:30 → OBSVTOIN 21:17 → JD.OB 21:17
PROVIDERS: ADMIT Obstetrics & Gynecology; ATTEND Obstetrics & Gynecology
PROC: 10E0XZZ Delivery of Products of Conception, External Approach (ICD-10-PCS; principal; 2021-05-22)
PROC: 10907ZC Drainage of Amniotic Fluid, Therapeutic from Products of Conception, Via Natural or Artificial Opening (ICD-10-PCS; 2021-05-22)
PROC: 3E033VJ Introduction of Other Hormone into Peripheral Vein, Percutaneous Approach (ICD-10-PCS; 2021-05-22)
DX: O13.4 Gestational [pregnancy-induced] hypertension without significant proteinuria, complicating childbirth (principal); Z3A.39 39 weeks gestation of pregnancy; Z37.0 Single live birth; Z20.822 Contact with and (suspected) exposure to COVID-19
CPT/HCPCS: 36415; 59025; 59409; 85025; 86592; 86850; 86900; 86901; A9270-GY; J2590; J7120; U0002